=== PATIENT | female | born 2000 | race Caucasian/White ===

== ENCOUNTER 2021-06-13 23:22 | Emergency (ER) | payer OTHER ==
[~2021-06-13] VITALS: Ht 175.3 cm; Wt 56.7 kg
[2021-06-13 23:46] LABS: URINE BLOOD 3+ (Negative); URINE CLARITY CLEAR; URINE GLUCOSE-RANDOM NEGATIVE (Negative); URINE KETONES TRACE (Negative); URINE LEUKOCYTES-REFLEX NEGATIVE (Negative); URINE PROTEIN 1+ (Negative); URINE SPECIFIC GRAVITY >= 1.030 (1.005-1.030)
[2021-06-13 23:49] LABS: URINE BILIRUBIN 1+ (Negative); URINE COLOR DARK YELLOW; URINE NITRITE-REFLEX POSITIVE (Negative)
[2021-06-13 23:54] LABS: BACTERIA-REFLEX >30 Many /HPF (None Seen); CASTS None Seen /LPF (None Seen); CRYSTALS None Seen /LPF (None Seen); ICTOTEST (BILI CONFIRMATORY) Negative (Negative); MUCUS 0-3 Light strn/LPF (None Seen); SQUAMOUS 4-10 Moderate /LPF (0-3); URINE WBC-REFLEX 6-15 Few /HPF (0-5)
[2021-06-14 00:02] LABS: ABSOLUTE EOSINOPHILS 0.1 thou/uL (0.0-0.7); ABSOLUTE LYMPHOCYTES 1.2 thou/uL (0.8-5.3); ABSOLUTE MONOCYTES 0.6 thou/uL (0.0-1.2); ABSOLUTE NEUTROPHILS 2.1 thou/uL (1.6-8.1); BASOPHILS 0.7 %; EOSINOPHILS 1.5 %; HEMATOCRIT 37.4 % (37.0-47.0); HEMOGLOBIN 13.3 gm/dL (12.0-15.0); LYMPHOCYTES 29.3 %; MCH 31.4 pg (26.0-34.0); MCHC 35.5 g/dL (28.0-37.0); MCV 88.6 fL (80.0-100.0); MONOCYTES 15.9 %; MPV 8.2 fl. (7.2-11.1); NUCLEATED RBCS 0 /100WBC; PLATELET COUNT* 227 thou/uL (150-400); POLYS 52.6 %; RBC 4.22 mil/uL (4.20-5.00); RDW-CV 12.3 % (10.5-14.5)
[2021-06-14 00:08] LABS: CALCIUM 9.2 mg/dL (8.5-10.1); CREATININE 0.9 mg/dL (0.6-1.3); POTASSIUM 3.9 mmol/L (3.5-5.1)
[2021-06-14 00:12] LABS: ALBUMIN 4.5 g/dL (3.4-5.0); TOTAL BILIRUBIN 0.9 mg/dL (<0.1-1.0)
[2021-06-14] MEDS ORDERED: ACETAMINOPHEN-1 EAC2 PO (01:17)
[2021-06-14] MEDS ORDERED: CEPHALEXIN500 MG PO (01:17)
[2021-06-14 01:29] VITALS: BP 110/60
== END 2021-06-14 01:30 | disposition home or self-care (01) ==
LOC: M.ERS 23:22
PROVIDERS: Personal Emergency Response Attendant
DX: N39.0 Urinary tract infection, site not specified (principal); Z20.822 Contact with and (suspected) exposure to COVID-19; M79.18 Myalgia, other site

== ENCOUNTER 2021-10-05 01:27 | Emergency (ER) | payer OTHER ==
[~2021-10-05] VITALS: Ht 177.8 cm; Wt 57.1 kg
[~2021-10-05 01:27] MED LIST: ACETAMINOPHEN-1 EAC2 PO; CEPHALEXIN500 MG PO
[2021-10-05 01:55] LABS: URINE BILIRUBIN NEGATIVE (Negative); URINE BLOOD 2+ (Negative); URINE CLARITY CLEAR; URINE COLOR YELLOW; URINE GLUCOSE-RANDOM NEGATIVE (Negative); URINE KETONES 1+ (Negative); URINE LEUKOCYTES-REFLEX NEGATIVE (Negative); URINE NITRITE-REFLEX NEGATIVE (Negative); URINE PROTEIN NEGATIVE (Negative); URINE SPECIFIC GRAVITY 1.025 (1.005-1.030); URINE UROBILINOGEN 0.2 E.U./dl (0.2-1.0)
[2021-10-05 02:05] LABS: BACTERIA-REFLEX >30 Many /HPF (None Seen); CASTS None Seen /LPF (None Seen); CRYSTALS None Seen /LPF (None Seen); MUCUS >6 Heavy strn/LPF (None Seen); SQUAMOUS 4-10 Moderate /LPF (0-3); TRANSITIONAL EPITHEL CELL 0-3 Few /LPF (None Seen); URINE WBC-REFLEX 0-5 Rare /HPF (0-5)
[2021-10-05 02:56] LABS: HEMATOCRIT 37.4 % (37.0-47.0); MCH 30.7 pg (26.0-34.0); MCHC 34.8 g/dL (28.0-37.0); MCV 88.2 fL (80.0-100.0); MPV 8.8 fl. (7.2-11.1); NUCLEATED RBCS 0 /100WBC; PLATELET COUNT* 214 thou/uL (150-400); RBC 4.24 mil/uL (4.20-5.00); RDW-CV 12.9 % (10.5-14.5); WBC 8.9 thou/uL (4.0-11.0)
[2021-10-05 03:00] LABS: CALCIUM 8.7 mg/dL (8.5-10.1); CREATININE 0.9 mg/dL (0.6-1.3); POTASSIUM 3.8 mmol/L (3.5-5.1)
[2021-10-05 03:04] LABS: ALBUMIN 4.6 g/dL (3.4-5.0); TOTAL PROTEIN 7.8 g/dL (6.4-8.2)
[2021-10-05 03:05] LABS: INFLUENZA A ANTIGEN Negative (Negative); INFLUENZA B ANTIGEN Negative (Negative)
[2021-10-05] MEDS ORDERED: ZOFRAN ODT4 MG PO (03:56)
[2021-10-05 04:09] VITALS: BP 124/78
[2021-10-05 07:02] LABS: ABSOLUTE LYMPHOCYTES 0.3 thou/uL (0.8-5.3); ABSOLUTE MONOCYTES 0.5 thou/uL (0.0-1.2); ABSOLUTE NEUTROPHILS 8.1 thou/uL (1.6-8.1)
[2021-10-05 07:03] LABS: PLATELET ESTIMATE ADEQUATE
== END 2021-10-05 04:10 | disposition home or self-care (01) ==
LOC: M.ERS 01:27
PROVIDERS: Personal Emergency Response Attendant
DX: K52.9 Noninfective gastroenteritis and colitis, unspecified (principal)